=== PATIENT | male | born 1980 | race Caucasian/White ===

== ENCOUNTER 2019-02-10 16:33 | Emergency (ER) | payer MEDICAID ==
[~2019-02-10] VITALS: Ht 157.5 cm; Wt 66.4 kg
[2019-02-10 16:36] VITALS: Ht 157.5 cm; Wt 66.4 kg
[2019-02-10] MEDS ORDERED: ACET-141 PO (19:39)
[2019-02-10] MEDS ORDERED: IBUP-1561 PO (19:39)
--- NOTE | 2019-02-10 19:46 | ERD ---
ER Documentation Chief Complaint Chief Complaint RT GROIN PAIN WITH BUMPS X 2 MONTHS ROS All systems reviewed and are negative except as per history of present illness. Medications Home Meds Active Scripts Ibuprofen* (Motrin*) 400 Mg Tab, 400 MG PO Q6H PRN for PAIN AND OR ELEVATED TEMP, #30 TAB Prov:PEPPER SANTOS DO 02/10/19 Acetaminophen* (Acetaminophen*) 500 MG Extra Strength Tablet, 500 MG PO Q4H PRN for PAIN AND OR ELEVATED TEMP, #30 TAB Prov:PEPPER SANTOS DO 02/10/19 Allergies Allergies: Coded Allergies: No Known Allergy (Unverified , 02/10/19) PMhx/Soc Medical and Surgical Hx: pt denies Medical Hx, pt denies Surgical Hx Hx Alcohol Use: No Hx Substance Use: No Hx Tobacco Use: No Smoking Status: Never smoker Physical Exam Vitals Vital Signs Date Temp Pulse Resp B/P (MAP) Pulse Ox O2 O2 Flow FiO2 Time Delivery Rate 02/10/19 97.8 78 16 137/87 98 16:36 (104) Physical Exam Const: No acute distress Head: Atraumatic Eyes: Normal Conjunctiva ENT: Normal External Ears, Nose and Mouth. Neck: Full range of motion. No meningismus. Resp: Clear to auscultation bilaterally Cardio: Regular rate and rhythm, no murmurs Abd: Soft, non tender, non distended. Normal bowel sounds Skin: No petechiae or rashes Back: No midline or flank tenderness Ext: No cyanosis, or edema Neur: Awake and alert Psych: Normal Mood and Affect Result Diagram: 02/10/19 1707 02/10/19 1707 Results 24 hrs Laboratory Tests Test 02/10/19 17:07 White Blood Count 4.6 10^3/ul Red Blood Count 4.81 10^6/ul Hemoglobin 15.1 g/dl Hematocrit 44.3 % Mean Corpuscular Volume 92.1 fl Mean Corpuscular Hemoglobin 31.4 pg Mean Corpuscular Hemoglobin Concent 34.1 g/dl Red Cell Distribution Width 12.1 % Platelet Count 146 10^3/UL Mean Platelet Volume 11.4 fl Immature Granulocytes % 0.200 % Neutrophils % 56.1 % Lymphocytes % 35.0 % Monocytes % 6.8 % Eosinophils % 1.5 % Basophils % 0.4 % Nucleated Red Blood Cells % 0.0 /100WBC Immature Granulocytes # 0.010 10^3/ul Neutrophils # 2.6 10^3/ul Lymphocytes # 1.6 10^3/ul Monocytes # 0.3 10^3/ul Eosinophils # 0.1 10^3/ul Basophils # 0.0 10^3/ul Nucleated Red Blood Cells # 0.0 10^3/ul Sodium Level 141 mmol/L Potassium Level 3.7 mmol/L Chloride Level 106 mmol/L Carbon Dioxide Level 26 mmol/L Anion Gap 9 Blood Urea Nitrogen 13 mg/dl Creatinine 0.86 mg/dl Est Glomerular Filtrat Rate mL/min > 60 mL/min Glucose Level 99 mg/dl Calcium Level 8.8 mg/dl Total Bilirubin 0.5 mg/dl Direct Bilirubin 0.00 mg/dl Indirect Bilirubin 0.5 mg/dl Aspartate Amino Transf (AST/SGOT) 23 IU/L Alanine Aminotransferase (ALT/SGPT) 31 IU/L Alkaline Phosphatase 53 IU/L Total Protein 7.9 g/dl Albumin 4.5 g/dl Globulin 3.40 g/dl Albumin/Globulin Ratio 1.32 Departure Diagnosis: Primary Impression: Groin pain, lower right quadrant Additional Impression: Lipoma Lipoma location: lower extremity Laterality: right Qualified Codes: D17.23 - Benign lipomatous neoplasm of skin and subcutaneous tissue of right leg Condition: Fair Patient Instructions: Lipoma Referrals: [facility] YOU HAVE RECEIVED A MEDICAL SCREENING EXAM AND THE RESULTS INDICATE THAT YOU DO NOT HAVE A CONDITION THAT REQUIRES URGENT TREATMENT IN THE EMERGENCY DEPARTMENT. FURTHER EVALUATION AND TREATMENT OF YOUR CONDITION CAN WAIT UNTIL YOU ARE SEEN IN YOUR DOCTORS OFFICE WITHIN THE NEXT 1-2 DAYS. IT IS YOUR RESPONSIBILITY TO MAKE AN APPOINTMENT FOR FOLOW-UP CARE. IF YOU HAVE A PRIMARY DOCTOR --you should call your primary doctor and schedule an appointment IF YOU DO NOT HAVE A PRIMARY DOCTOR YOU CAN CALL OUR PHYSICIAN REFERRAL HOTLINE AT IF YOU CAN NOT AFFORD TO SEE A PHYSICIAN YOU CAN CHOSE FROM THE FOLLOWING [facility] [address] [place] [facility] [address] [facility] [address] [facility] [address] [facility]. [facility] [address] [facility]. [facility] [address] Additional Instructions: Call your primary care doctor TOMORROW for an appointment during the next 1-2 days.See the doctor sooner or return here if your condition worsens before your appointment time. PEPPER SANTOS DO Feb 10, 2019 19:45
[2019-02-10 19:58] VITALS: BP 128/83; PULSE 58; RESP 18
== END 2019-02-10 20:00 | disposition home or self-care (01) ==
LOC: FTE 16:33
DX: R10.31 Right lower quadrant pain (principal); D17.23 Benign lipomatous neoplasm of skin and subcutaneous tissue of right leg
CPT/HCPCS: 36415; 76536; 80053; 85025

== ENCOUNTER 2019-04-24 17:25 | Emergency (ER) | payer MEDICAID ==
[~2019-04-24] VITALS: Ht 157.5 cm; Wt 65.9 kg
[~2019-04-24 17:25] MED LIST: ACET-141 PO; BEN25 PO; IBUP-1561 PO; PRED20TA PO; RANI150T35 PO
[2019-04-24 17:28] VITALS: BP 115/73; PULSE 93; RESP 20; Ht 157.5 cm; Wt 65.9 kg
== END 2019-04-24 18:03 | disposition home or self-care (01) ==
LOC: E/R 17:25
DX: L50.0 Allergic urticaria (principal)
CPT/HCPCS: 99283